=== PATIENT | male | born 1980 | race Caucasian/White ===

== ENCOUNTER 2022-01-21 01:55 | Emergency (ER) | payer OTHER, SELFPAY ==
[2022-01-21 01:59] VITALS: BP 132/81; PULSE 95; RESP 16; TEMP 36.8; O2SAT 98; BMI 29.0
[2022-01-21 02:42] LABS: Influenza A by IFA positive (Negative); Influenza B by IFA negative (Negative)
--- NOTE | 2022-01-21 03:11 | W.ED.URI ---
HPI - URI/Sore Throat General: Chief Complaint: Upper Respiratory Infection Stated Complaint: flu like symptoms Time Seen by Provider: 01/21/22 03:10 History of Present Illness: 41-year-old male patient comes in today for complaints of cough and fever since Sunday. Patient was seen by Dr. Mix and was diagnosed with a bronchial infection. Patient was started on doxycycline. Patient reported no improvement in symptoms. She appears nontoxic. Patient appears unwell. Patient appears in no pain. Associated symptoms: Reports fever(s) Review of Systems General: Reports: 10 or more systems reviewed and unremarkable except in HPI and below Const: Reports: fever(s) Resp: Reports: non-productive cough Physical Exam Const: COMMON NORMALS: alert HENMT: COMMON NORMALS: normocephalic HEAD & SCALP: normocephalic Neck/C-Spine: COMMON NORMALS: no meningeal signs Resp: COMMON NORMALS: normal respiratory effort and clear to auscultation bilaterally AUSCULTATION: clear to auscultation bilaterally Cardio: COMMON NORMALS: regular rate RATE: regular rate Extremity: COMMON NORMALS: full ROM Neuro: SENSORIUM/ORIENTATION: Yes alert MENINGEAL SIGNS: Yes no meningeal signs Skin: COMMON NORMALS: turgor normal GENERAL SKIN EXAM: turgor normal Course Vital Signs: Vital signs: Vital Signs Temperature 98.3 F 01/21/22 01:59 Pulse Rate 95 01/21/22 01:59 Respiratory Rate 16 01/21/22 01:59 Blood Pressure 132/81 01/21/22 01:59 Pulse Oximetry 98 01/21/22 01:59 Oxygen Delivery Me thod 01/21/22 01:59 MDM - URI/Sore Throat Medical Decision Making 41-year-old male patient comes in today with complaints of cough and fever for 3 days. On exam patient appears nontoxic. Lungs are clear to auscultation. Abdomen soft nontender. Skin is warm and dry. Vital signs are normal. Differential diagnosis includes influenza, COVID-19, pneumonia, viral syndrome. Lungs are clear to auscultation no signs of pneumonia was noted. Patient was positive for influenza A. Reviewed exam with patient with recommendations for treatment and follow-up. Patient reported understanding. Lab Data Laboratory Results Influenza Type A Ag positive (Negative) H 01/21/22 02:04 Influenza Type B Ag negative (Negative) 01/21/22 02:04 Discharge Plan Discharge Patient Disposition: Home Clinical Impression: Influenza Condition: Stable Discharge Orders: Discharge ED (Routine); Ordered 01/21/22 Ordered By: Skyler Elias Referrals: Robin Santoyo MD [Primary Care Provider] - Discharge Diet: Usual diet Discharge Activity: Increase activity as tolerated Patient Instructions: Influenza (ED) Activity Restrictions/Additional Instructions: Home and rest. Drink lots of fluids. Follow-up with primary care. Stand Alone Forms: Work/School Release Coding Level of Care Code ED Site Reliability Engineer for Mohamud Romo
== END 2022-01-21 03:16 | disposition home or self-care (01) ==
PROVIDERS: Emergency Medicine; Emergency Provider Nurse Practitioner Family; Family Provider Family Medicine; PCP Family Medicine
DX: J11.1 Influenza due to unidentified influenza virus with other respiratory manifestations (principal)
CPT/HCPCS: 87804; 99282